=== PATIENT | female | born 1980 | race Asian ===

== ENCOUNTER 2016-08-28 20:43 | Emergency (ER) | payer OTHER ==
[~2016-08-28] VITALS: Ht 157.5 cm; Wt 56.8 kg
[2016-08-28 21:00] VITALS: BP 133/84; PULSE 68; RESP 16; O2SAT 99
--- NOTE | 2016-08-28 21:10 | ED.REPORT ---
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 She immediately irrigated her right eye. Pt denies any health problems or chance of . Nursing Notes Stated Complaint: EXPOSURE Chief Complaint: Post Exposure Body Fluids Nursing Notes Reviewed: Yes Allergies: Coded Allergies: No Known Allergies (Unverified , 08/28/16) General Time Seen by MD: 21:10 Chief Complaint Other (bodily fluid exposure) Hx Obtained From: Patient Arrived By: Walk-in Sudden in Onset?: Yes Onset Occurred: Just prior to arrival Symptom Duration: Since onset Severity: Current: No pain currently Recent Healthcare: No recent doctor visit, No recent hospitalization Similar Sx Previous: No Past Medical History Past Medical History healthy Past Surgical History denies Smoking History Unknown if Ever Smoker Social History Other Social History: Local resident Ambulatory Status Independent Review of Systems bodily fluid exposure Full Review of Systems Eyes: Denies: Discharge bilateral, Eye pain bilateral, Redness bilateral, Visual loss bilateral Musculoskeletal: Denies: Extremity pain, Extremity swelling, Joint pain, Joint swelling, Lumbar pain Hematologic: Denies Bleeding, Denies Bruising Complete sys rev & neg: except as marked. Physical Exam Vital Signs Vital Signs Date Time Temp Pulse Resp B/P Pulse Ox O2 Delivery O2 Flow Rate FiO2 08/28/16 21:00 36.5 68 16 133/84 99 Room Air Initial VS: Reviewed General/Constitutional: Awake, Alert, No acute distress, Cooperative, Not toxic appearing Head / Eyes: Atraumatic, Normocephalic, PERRL, EOMI ENT: Atraumatic, Airway patent, Mucous membranes moist Respiratory / Chest: Atraumatic, Breath sounds NL, Breath sounds = bilat, No respiratory distress Cardiovascular: Heart rate NL, Regular rhythm, Heart sounds NL, No gallop, No murmurs, No rubs Upper Extremities Upper Extremity / MS: Atraumatic, Inspection NL, No deformity Lower Extremity / Pelvis / MS: Atraumatic, Inspection NL, No deformity Skin: Atraumatic, Warm, Dry Neurologic: Oriented X3, Speech NL, No motor deficits Re-Eval/Medical Decision Med Decision/Clinical Course It sounds like saline is being irrigated and a closed wound. Some the 8 saline and splash this young lady in the eye. No exposed blood however. I suppose it could have been body fluid. An exposure 7 panel is being ordered. We will have the source blood test for HIV and hepatitis. If the HIV is negative I do not recommend prophylaxis because this seems like an incredibly low pathogen exposure. Mrs. Ayers concurs. We will refer her to employee health. Time of Eval: 21:16 Re-Evaluation/Progress Note: Pt checked. Plan for exposure 7 panel and eye irrigation. Counseled Regarding: Diagnosis, Lab results, Need for follow-up, When/why to return to ED Discharge & Departure Primary Impression: Employee exposure to body fluids Disposition: Home Discharge Condition All VS Reviewed: Yes Condition: Stable Patient Instructions: Body Substance Exposure (ED) Additional Instructions: Follow up with employee health tomorrow. Call the number on your packet. Employee health will need to do a rapid HIV test on the source. You will need to confirm the source blood. If the source is HIV positive, recommend HIV prophylaxis. Referrals: Cinthia Cruz MD (PCP) Scribe Attestation Portion of this note were transcribed by Talia Hong. I, Dr. Rodrigues, personally performed the history, physical exam, and medical decision-making: I reviewed and confirmed the accuracy for the information in the transcribed note. Signed by: donita Pierce, 08/28/16 2300 copies to: Cinthia Cruz MD, Todd P DO Aug 28, 2016 21:10 Talia Hong Aug 28, 2016 21:18
[2016-08-28] MEDS ORDERED: Tetracaine 0.5% 4 mL Ophthalmic Solution RIGHT_EYE ONE (21:35)
[2016-08-28 23:42] VITALS: BP 152/93; PULSE 64; RESP 16; O2SAT 99
[2016-08-28 23:43] VITALS: BP 152/93; PULSE 64; RESP 16; O2SAT 99
== END 2016-08-28 23:43 | disposition home or self-care (01) ==
LOC: SED 20:43
DX: Z77.21 Contact with and (suspected) exposure to potentially hazardous body fluids (principal); X58.XXXA Exposure to other specified factors, initial encounter; Y93.89 Activity, other specified; Y92.238 Other place in hospital as the place of occurrence of the external cause; Y99.0 Civilian activity done for income or pay
CPT/HCPCS: 36415; 86706; 87340; 99283; G0433